=== PATIENT | male | born 2000 | race Caucasian/White ===

== ENCOUNTER 2018-06-04 06:40 | Inpatient (IN) | payer OTHER, MEDICAID ==
[2018-06-04] MEDS: MAGNESIUM SULFATE 2 GM/50 ML 50 ML IVPB (06:49)
[2018-06-04] MEDS: SOD CHLORIDE 0.9% 1,000 ML IV ×2 (06:49→12:03)
[2018-06-04] MEDS: DILTIAZEM 25 MG INJ IV (06:50)
[2018-06-04 06:56] LABS: ADD MAN DIFF? NO
[2018-06-04] MEDS: DILTIAZEM-D5W 125MG/125ML DRIP 125 ML IV (07:02)
[2018-06-04 07:04] LABS: BASOPHIL # 0.1 10^3/ul (0.0-0.1); BASOPHILS % 0.7 % (0.0-2.0); EOSINOPHILS # 0.1 10^3/ul (0.0-0.5); EOSINOPHILS % 0.6 % (0.0-7.0); HEMATOCRIT 45.4 % (42.0-52.0); HEMOGLOBIN 14.7 g/dl (14.0-18.0); LYMPHOCYTES # 1.9 10^3/ul (0.8-2.9); LYMPHOCYTES % 17.4 % (18.0-55.0); MEAN CORPUSCULAR HEMOGLOBIN 27.8 pg (29.0-33.0); MEAN CORPUSCULAR HGB CONC 32.4 g/dl (32.0-37.0); MEAN CORPUSCULAR VOLUME 85.8 fl (72.0-104.0); MEAN PLATELET VOLUME 9.8 fl (7.4-10.4); MONOCYTE # 0.9 10^3/ul (0.3-0.9); MONOCYTES % 8.3 % (0.0-13.0); NEUTROPHIL # 7.8 10^3/ul (1.6-7.5); NEUTROPHILS % 72.6 % (30.0-74.0); PLATELET COUNT 312 10^3/UL (140-415); RED BLOOD COUNT 5.29 10^6/ul (4.70-6.10); RED CELL DISTRIBUTION WIDTH 12.2 % (11.5-14.5)
[2018-06-04 07:04] LABS: WHITE BLOOD COUNT 10.7 10^3/ul (4.8-10.8)
[2018-06-04 07:19] LABS: ANION GAP 15 (8-16); BLOOD UREA NITROGEN 16 mg/dl (7-20); CALCIUM 9.7 mg/dl (8.4-10.2); CARBON DIOXIDE 31 mmol/L (21-31); CHLORIDE 102 mmol/L (97-110); CREATININE 0.76 mg/dl (0.61-1.24); GLUCOSE 85 mg/dl (70-220); INR 0.93; POTASSIUM 3.9 mmol/L (3.5-5.1); PROTIME 12.5 Sec (11.9-14.9); SODIUM 144 mmol/L (135-144)
[2018-06-04 07:20] LABS: PARTIAL THROMBOPLASTIN TIME 28.3 Sec (25.0-35.0)
[2018-06-04 07:32] LABS: TROPONIN-I < 0.012 ng/ml (0.000-0.120)
[2018-06-04 07:37] LABS: FREE THYROXINE INDEX (Calc) 4.43 ug/ml (0.65-3.89); T3 UPTAKE 37.5 % (23.5-40.5); T4 (THYROXINE) 11.8 ug/dl (5.5-11.0)
[2018-06-04 07:40] LABS: ETHANOL < 10.0 mg/dl
[2018-06-04 08:04] LABS: BARBITURATES Negative (NEGATIVE); BENZODIAZEPINES Negative (NEGATIVE); CANNABINOIDS Negative (NEGATIVE); COCAINE Negative (NEGATIVE); OPIATES Negative (NEGATIVE)
[2018-06-04 08:18] LABS: AMPHETAMINE/METHAMPHETAMINE Positive (NEGATIVE)
[2018-06-04] MEDS ORDERED: ONDANSETRON 4 MG INJ IV ×2 (08:30→10:30)
[2018-06-04] MEDS ORDERED: ACETAMINOPHEN 325 MG TAB PO ×2 (08:30→10:30)
[2018-06-04 11:50] LABS: CREATINE KINASE 270 IU/L (23-200)
[2018-06-04 11:52] LABS: PHOSPHORUS 4.8 mg/dl (2.5-4.9)
[2018-06-04 11:52] LABS: MAGNESIUM 2.6 mg/dl (1.7-2.5)
[2018-06-04] MEDS: ASPIRIN 81 MG TAB PO (11:58)
[2018-06-04] MEDS: FAMOTIDINE 20 MG TAB PO ×2 (11:58→20:57)
[2018-06-04] MEDS: DILTIAZEM (CD) 240 MG CAP PO (11:58)
[2018-06-04] MEDS: DOCUSATE SODIUM 100 MG CAP PO ×2 (11:58→20:57)
[2018-06-04 11:59] LABS: CK-MB 2.62 ng/ml (0.0-2.4); TROPONIN-I < 0.012 ng/ml (0.000-0.120)
[2018-06-04 17:03] LABS: CREATINE KINASE 213 IU/L (23-200)
[2018-06-04 17:17] LABS: CK-MB 2.11 ng/ml (0.0-2.4); TROPONIN-I < 0.012 ng/ml (0.000-0.120)
[2018-06-04] MEDS: ZOLPIDEM 5 MG TAB PO (20:57)
[2018-06-04] MEDS: IBUPROFEN 600 MG TAB PO (21:48)
[2018-06-05] MEDS: LORAZEPAM 2 MG INJ IV ×2 (10:00→18:02)
[2018-06-05] MEDS: FAMOTIDINE 20 MG TAB PO ×2 (10:02→21:25)
[2018-06-05] MEDS: DOCUSATE SODIUM 100 MG CAP PO ×2 (10:02→21:25)
[2018-06-05] MEDS: ASPIRIN 81 MG TAB PO (10:03)
[2018-06-05] MEDS: DILTIAZEM (CD) 240 MG CAP PO (10:03)
[2018-06-05 12:51] LABS: ADD MAN DIFF? NO
[2018-06-05 12:55] LABS: BASOPHIL # 0.1 10^3/ul (0.0-0.1); EOSINOPHILS # 0.1 10^3/ul (0.0-0.5); EOSINOPHILS % 1.4 % (0.0-7.0); HEMATOCRIT 47.7 % (42.0-52.0); HEMOGLOBIN 15.5 g/dl (14.0-18.0); LYMPHOCYTES # 2.1 10^3/ul (0.8-2.9); LYMPHOCYTES % 28.6 % (18.0-55.0); MEAN CORPUSCULAR HEMOGLOBIN 28.3 pg (29.0-33.0); MEAN CORPUSCULAR HGB CONC 32.5 g/dl (32.0-37.0); MEAN PLATELET VOLUME 9.9 fl (7.4-10.4); MONOCYTE # 0.6 10^3/ul (0.3-0.9); NEUTROPHIL # 4.4 10^3/ul (1.6-7.5); NEUTROPHILS % 60.6 % (30.0-74.0); PLATELET COUNT 310 10^3/UL (140-415); RED BLOOD COUNT 5.48 10^6/ul (4.70-6.10)
[2018-06-05 12:55] LABS: WHITE BLOOD COUNT 7.2 10^3/ul (4.8-10.8)
[2018-06-05 13:04] LABS: HEMOGLOBIN A1C 5.6 % (0-5.9)
[2018-06-05 13:12] LABS: ALANINE AMINOTRANSFERASE 44 IU/L (13-69); ALBUMIN 3.8 g/dl (3.3-4.9); ALKALINE PHOSPHATASE 82 IU/L (42-121); ANION GAP 12 (8-16); ASPARTATE AMINO TRANSFERASE 26 IU/L (15-46); BILIRUBIN,INDIRECT 0.6 mg/dl (0-1.1); BILIRUBIN,TOTAL 0.6 mg/dl (0.2-1.3); BLOOD UREA NITROGEN 17 mg/dl (7-20); CALCIUM 9.3 mg/dl (8.4-10.2); CARBON DIOXIDE 26 mmol/L (21-31); CHLORIDE 104 mmol/L (97-110); CREATININE 0.69 mg/dl (0.61-1.24); GLUCOSE 94 mg/dl (70-220); POTASSIUM 4.2 mmol/L (3.5-5.1); SODIUM 138 mmol/L (135-144); TOTAL PROTEIN 7.1 g/dl (6.1-8.1)
[2018-06-05 13:42] LABS: THYROID STIMULATING HORMONE 0.806 MIU/L (0.465-4.680)
[2018-06-05] MEDS: ZOLPIDEM 5 MG TAB PO (21:25)
[2018-06-05] MEDS: IBUPROFEN 600 MG TAB PO (21:26)
[2018-06-05] MEDS: METOPROLOL 5 MG INJ IV (23:14)
[2018-06-06] MEDS: METOPROLOL 50 MG TAB PO ×2 (06:30→06:48)
[2018-06-06] MEDS: DOCUSATE SODIUM 100 MG CAP PO (09:00)
[2018-06-06] MEDS: ASPIRIN 81 MG TAB PO (09:00)
[2018-06-06] MEDS: FAMOTIDINE 20 MG TAB PO (09:00)
[2018-06-06] MEDS: LORAZEPAM 2 MG INJ IV (09:51)
[2018-06-06] MEDS: DILTIAZEM (CD) 240 MG CAP PO (09:53)
== END 2018-06-06 11:00 | DRG 308 ==
LOC: E/R 06:40 → TEL 08:03
DX: I47.1 Supraventricular tachycardia (principal); G93.40 Encephalopathy, unspecified; F15.10 Other stimulant abuse, uncomplicated; F17.210 Nicotine dependence, cigarettes, uncomplicated; Z79.82 Long term (current) use of aspirin
CPT/HCPCS: 36415; 71045; 80048; 80076; 80307; 82550; 82553; 83036; 83735; 84100; 84436; 84443; 84479; 84484; 85025; 85610; 85730; 93005; 93306; 96374; 96375; 99291-25